=== PATIENT | female | born 1950 | race Caucasian/White ===

== ENCOUNTER → 2019-04-12 | Outpatient (CLI) | payer MEDICARE ==
--- NOTE | 2019-04-12 11:56 | RAD ---
Ultrasound guided fine needle aspiration biopsy of left thyroid nodule 04/12/2019 HISTORY: Thyroid nodule FINDINGS: Written informed consent was obtained from the patient. Limited ultrasound scanning was performed for localization of the left thyroid nodule. Skin was marked with ultrasound and then sterilely prepped and draped. Local anesthesia with 1% lidocaine. Using ultrasound guidance, 4 passes were made with 25 gauge needles into the thyroid nodule for fine needle aspiration biopsies. There were no immediate complications. IMPRESSION: 1. Status post ultrasound guided fine needle aspiration biopsy of left thyroid nodule. Electronically signed by: Brook Marin MD (04/12/2019 11:53 AM) [facility]
--- NOTE | 2019-04-17 12:07 | PATHOLOGY ---
Note [facility] Accession Number: [id number] TESTS RESULT FLAG UNITS REF RANGE LAB Clinician Provided Cytology Information No. of containers..01 Other (Miscellaneous) Source: LT THYROID NODULE DIAGNOSIS: LT THYROID NODULE NEGATIVE FOR MALIGNANT CELLS. [place] CATEGORY II. SPECIMEN CONSISTS OF BENIGN FOLLICULAR CELLS, FEW HEMOSIDERIN-LADEN MACROPHAGES, SCANT COLLOID, AND BLOOD. THE PATTERN IS CONSISTENT WITH ADENOMATOID NODULE. THIS INTERPRETATION INCLUDES EVALUATION OF A CELL BLOCK. Pathologist ICD10: 02 E04.1 Signed out by: Yvon Velazco MD, Pathologist NPI- [id number] Performed by: Tg Corea, Sewing Machine Mechanic ([facility]) Gross description: 30 ML, RED, CLEAR /LCS 07/04/1840 0000 Local FLAG LEGEND: L-Low Normal,H-High Normal,LL-Alert Low,HH-Alert High <-Panic Low,>-Panic High,A-Abnormal,AA-Critical Abnormal Performed at: [facility] [address] [place] [address] Harvey Connors MD, 02 [facility] [address] [place] [address] Yvon Velazco MD, Specimen Comment: A courtesy copy of this report has been sent to Specimen Comment: [phone]. Specimen Comment: Report sent to Specimen Comment: A duplicate report has been generated due to demographic updates. Performed at: [address], [place], [place] [id number] MD Harvey Connors MD Phone: [phone]
== END ==
LOC: US 10:28
PROVIDERS: ATTEND Family Medicine
DX: E04.1 Nontoxic single thyroid nodule (principal)
CPT/HCPCS: 10005; 60300; 76942; 88173; 88305